=== PATIENT | female | born 1990 | race African-American/Black ===

== ENCOUNTER 2019-01-10 07:29 | Emergency (ER) | payer OTHER ==
[~2019-01-10] VITALS: Ht 167.6 cm; Wt 72.6 kg
== END 2019-01-10 12:07 | disposition home or self-care (01) ==
LOC: ER 07:29
DX: B34.9 Viral infection, unspecified (principal); M54.5 Low back pain

== ENCOUNTER 2022-03-14 10:53 | Emergency (ER) | payer OTHER ==
[~2022-03-14] VITALS: Ht 167.6 cm; Wt 80.7 kg
[2022-03-14] MEDS ORDERED: LUTERA-28 TABL1 EACH PO (11:17)
== END 2022-03-14 16:52 ==
LOC: ER 10:53
DX: K80.20 Calculus of gallbladder without cholecystitis without obstruction (principal); R10.84 Generalized abdominal pain; Z91.018 Allergy to other foods

== ENCOUNTER → 2025-08-28 | Emergency (ER) | payer OTHER ==
[~2025-08-28] VITALS: Ht 167.6 cm; Wt 90.7 kg
[~2025-08-28] MED LIST: 0.9 % SODIUM CHLORIDE 1,000 ML IV ONE; LUTERA-28 TABL1 EACH PO
[2025-08-28 11:05] LABS: BASO % 0.2 % (0.1-1.2); EOS # 0.03 (0.04-0.54); EOS % 0.3 % (0.7-7.0); LYMPH # 1.82 (1.18-3.74); LYMPH % 19.0 % (19.3-53.1); MEAN PLATELET VOLUME 8.70 fl (9.4-12.4); MONO # 0.97 (0.24-0.82); MONO % 10.1 % (4.7-12.5); NEUT # 6.71 (1.56-6.13); NEUT % 70.0 % (34.0-71.1); RED CELL DISTRIBUTION WIDTH 12.4 % (11.6-14.4)
[2025-08-28 11:36] LABS: BUN CREA RATIO 7.0 (7.0-25.0); CREATININE SERUM 0.69 mg/dL (0.55-1.02); GFR 98.59; GLUCOSE FASTING 103.0 mg/dL (65-100); OSMOLALITY SERUM 273.0 MOSM/KG (275-295)
== END | disposition home or self-care (01) ==
LOC: ER 08:24
PROVIDERS: Emergency Medicine
DX: R19.7 Diarrhea, unspecified (principal); R07.89 Other chest pain; Z91.018 Allergy to other foods